=== PATIENT | female | born 1955 | race African-American/Black ===

== ENCOUNTER → 2016-12-02 | Outpatient (CLI) | payer BC ==
[~2016-12-02] MED LIST: BENADRYL25 MG ORAL; CLINDAMYCIN HC300 MG PO; PEPCID20 MG ORAL; PREDNISONE10 MG ORAL
--- NOTE | 2016-12-05 10:33 | Diagnostic Imaging Report ---
Indications: Screening Technique: Low dose film screen mammograms of both breasts was performed in craniocaudal, mediolateral oblique projections. Findings: Comparison: 03/02/2012 Skin and nipples remain unremarkable. Axillae contain benign-appearing lymph nodes. Parenchyma comprised of scattered fibroglandular densities, unchanged Bilateral benign-appearing parenchymal calcifications have increased in number. No mass, architectural distortion, suspicious microcalcifications, or other abnormalities identified. IMPRESSION: No evidence of malignancy, unchanged BI-RADS category 2: Benign finding(s) Breast density BI-RADS type B. Recommendation: Routine screening mammography.
== END | disposition home or self-care (01) ==
LOC: MAMMO 09:31
DX: Z12.31 Encounter for screening mammogram for malignant neoplasm of breast (principal)
CPT/HCPCS: 77067

== ENCOUNTER 2020-12-19 11:20 | Emergency (ER) | payer BC ==
[~2020-12-19] VITALS: Ht 162.6 cm; Wt 113.4 kg
[2020-12-19 11:32] VITALS: BP 163/89
--- NOTE | 2020-12-19 11:32 | NUR ---
ED Nurse Note: Pt walked in to ED from home c/o headache, fatigue, bodyaches after getting her 1st dose of Covid vaccine last 12/12/20. Denies fever/ chills/ SOB. AAOx4, on room air.
[2020-12-19 13:16] LABS: BASOPHILS % (AUTO) 0.5 % (0.0-2.0); HEMOGLOBIN 11.9 G/DL (12.0-16.0); LYMPHOCYTES % (AUTO) 30.1 % (20.0-45.0); MEAN CORPUSCULAR VOLUME 92 FL (80-99); MONOCYTES % (AUTO) 9.3 % (1.0-10.0); PLATELET COUNT 199 K/UL (150-450); RED BLOOD COUNT 4.26 M/UL (4.20-5.40); RED CELL DISTRIBUTION WIDTH 13.8 % (11.6-14.8); WHITE BLOOD COUNT 3.6 K/UL (4.8-10.8)
[2020-12-19 13:28] LABS: CALCIUM 8.5 MG/DL (8.5-10.1); CREATININE 1.2 MG/DL (0.55-1.30); POTASSIUM 4.6 MMOL/L (3.5-5.1)
[2020-12-19 13:46] LABS: ALBUMIN 3.1 G/DL (3.4-5.0); ALBUMIN/GLOBULIN RATIO 0.6 (1.0-2.7); BILIRUBIN,DIRECT 0.1 MG/DL (0.0-0.3); BILIRUBIN,TOTAL 1.3 MG/DL (0.2-1.0)
[2020-12-19 14:13] VITALS: BP 145/72
--- NOTE | 2020-12-19 14:13 | NUR ---
ED Nurse Note: Pt cleared by ERMD for discharge. DC instructions was given and explained to pt and verbalized understanding of teachings. All medical deviecs such as ID band and IV line removed. Pt is AAO x4, ambulatory and left with all personal belongings.
--- NOTE | 2020-12-20 08:10 | Emergency Room Report ---
History of Present Illness General Chief Complaint: General Complaint Source: Patient Present Illness HPI 65-year-old female presents for evaluation. States she feels weak with body aches and fatigue and headache. Received Covid vaccine on 12/12. States she is been feeling worse so her doctor told her to come to the ER for evaluation. Denies cough chest pain or shortness of breath. No other aggravating relieving factors. 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 Patient History Past Medical History: HTN, asthma Social History: Denies: smoking, alcohol use, drug use Now: No Immunizations: UTD Reviewed Nursing Documentation: PMH: Agreed; PSxH: Agreed Nursing Documentation-PMH Hx Cardiac Problems: Yes Hx Hypertension: Yes Hx Asthma: Yes Hx Cancer: No Hx Gastrointestinal Problems: No Hx Neurological Problems: No Review of Systems All Other Systems: negative except mentioned in HPI Physical Exam Vital Signs Date Time Temp Pulse Resp B/P (MAP) Pulse Ox O2 Delivery O2 Flow Rate FiO2 12/19/20 11:27 99.1 92 19 163/89 (113) 98 Room Air Sp02 EP Interpretation: reviewed, normal General Appearance: no apparent distress, alert, GCS 15, non-toxic Head: normocephalic, atraumatic Eyes: bilateral eye normal inspection, bilateral eye PERRL ENT: hearing grossly normal, normal pharynx, no angioedema, normal voice Neck: full range of motion, supple/symm/no masses Respiratory: chest non-tender, lungs clear, normal breath sounds, speaking full sentences Cardiovascular #1: regular rate, rhythm, no edema Cardiovascular #2: 2+ carotid (R), 2+ carotid (L), 2+ radial (R), 2+ radial (L ), 2+ dorsalis pedis (R), 2+ dorsalis pedis (L) Gastrointestinal: normal bowel sounds, non tender, soft, non-distended, no guarding, no rebound Rectal: deferred Genitourinary: normal inspection, no CVA tenderness Musculoskeletal: back normal, normal range of motion, gait/station normal, non-tender Neurologic: alert, motor strength/tone normal, oriented x3, sensory intact, responsive, speech normal Psychiatric: judgement/insight normal, memory normal, mood/affect normal, no suicidal/homicidal ideation Reflexes: 3+ bicep (R), 3+ bicep (L), 3+ tricep (R), 3+ tricep (L), 3+ knee (R), 3+ knee (L) Lymphatic: no adenopathy Medical Decision Making Diagnostic Impression: Primary Impression: Adverse reaction to vaccine Qualified Codes: [id number].[id number] - Adverse effect of other vaccines and biological substances, initial encounter ER Course Hospital Course 65-year-old female presents with fatigue, body aches after receiving Covid vaccine #1 differential diagnosis: URI, dehydration, anemia Clinical course Patient placed on stretcher. On patient monitor. After initial history and physical I ordered labs, IV fluids Labs - leukocytosis, electrolytes ok, LFTs normal upon reassessment, patient states she feels much better. Barbra findings with patient. Continue to rest and take fluids. Still encourage patient to receive second dose of vaccine. Will discharge home I feel this is a highly complex case requiring extensive working including EKG/Rhythm strip, Xray/CT/US, Blood/urine lab work, repeat exams while in ED, and administration of strong opiates/narcotics for pain control, admission to hospital or close patient follow up. Diagnosis - adverse reaction to vaccine Stable and discharged to home. Followup with PMD. Return to ED if symptoms recur or worsen Laboratory Tests Test 12/19/20 12:15 White Blood Count 3.6 K/UL (4.8-10.8) L Red Blood Count 4.26 M/UL (4.20-5.40) Hemoglobin 11.9 G/DL (12.0-16.0) L Hematocrit 39.0 % (37.0-47.0) Mean Corpuscular Volume 92 FL (80-99) Mean Corpuscular Hemoglobin 27.9 PG (27.0-31.0) Mean Corpuscular Hemoglobin Concent 30.5 G/DL (32.0-36.0) L Red Cell Distribution Width 13.8 % (11.6-14.8) Platelet Count 199 K/UL (150-450) Mean Platelet Volume 8.4 FL (6.5-10.1) Neutrophils (%) (Auto) 60.0 % (45.0-75.0) Lymphocytes (%) (Auto) 30.1 % (20.0-45.0) Monocytes (%) (Auto) 9.3 % (1.0-10.0) Eosinophils (%) (Auto) 0.0 % (0.0-3.0) Basophils (%) (Auto) 0.5 % (0.0-2.0) Sodium Level 131 MMOL/L (136-145) L Potassium Level 4.6 MMOL/L (3.5-5.1) Chloride Level 101 MMOL/L (98-107) Carbon Dioxide Level 23 MMOL/L (21-32) Anion Gap 7 mmol/L (5-15) Blood Urea Nitrogen 18 mg/dL (7-18) Creatinine 1.2 MG/DL (0.55-1.30) Estimat Glomerular Filtration Rate 54.9 mL/min (>60) Glucose Level 88 MG/DL (74-106) Calcium Level 8.5 MG/DL (8.5-10.1) Total Bilirubin 1.3 MG/DL (0.2-1.0) H Direct Bilirubin 0.1 MG/DL (0.0-0.3) Aspartate Amino Transf (AST/SGOT) 53 U/L (15-37) H Alanine Aminotransferase (ALT/SGPT) 24 U/L (12-78) Alkaline Phosphatase 73 U/L (46-116) Total Protein 8.2 G/DL (6.4-8.2) Albumin 3.1 G/DL (3.4-5.0) L Globulin 5.1 g/dL Albumin/Globulin Ratio 0.6 (1.0-2.7) L Last Vital Signs Date Time Temp Pulse Resp B/P (MAP) Pulse Ox O2 Delivery O2 Flow Rate FiO2 12/19/20 14:13 98.8 79 16 145/72 98 Room Air Status: improved Disposition: HOME, SELF-CARE Condition: Stable Patient Instructions: Weakness, [id number] Gordon Pascal MD Dec 20, 2020 08:10
== END 2020-12-19 14:13 | disposition home or self-care (01) ==
LOC: EMR 12:00
DX: R53.83 Other fatigue (principal); T50.Z95A Adverse effect of other vaccines and biological substances, initial encounter; U07.1 COVID-19; I11.9 Hypertensive heart disease without heart failure; Y92.9 Unspecified place or not applicable; Z88.0 Allergy status to penicillin; Z91.018 Allergy to other foods
CPT/HCPCS: 36415; 80053; 82248; 85025; 96360; 99284